=== PATIENT | male | born 1980 | race Caucasian/White ===

== ENCOUNTER 2018-01-14 15:44 | Inpatient (IN) | payer OTHER ==
[2018-01-14 16:40] VITALS: BMI 27.3
--- NOTE | 2018-01-14 19:35 | HP ---
COWS - Scale Resting Pulse: 0= [place] 80 or Below Sweatin= Chills/Flushing Restless Observation: 3= Extraneous Movement Pupil Size: 1= Pupils >than Normal Bone or Joint Aches: 1= Mild Discomfort Runny Nose/ Eye Tearin= Runny Nose/Eyes GI Upset > 30mins: 3= Vomiting/Diarrhea Tremor Observation: 2= Slight Tremor Visible Yawning Observation: 1= 1-2x During Session Anxiety or Irritability: 2=Irritable/Anxious Goose Flesh Skin: 0=Smooth Skin COWS Score: 16 Admission ROS [facility] Chief Complaint: withdrawal symptoms " I wrecked my care recently while using drugs" Allergies/Adverse Reactions: Allergies Allergy/AdvReac Type Severity Reaction Status Date / Time No Known Allergies Allergy Verified 01/14/18 18:14 History of Present Illness: 37 yo male with hx of xanax, cocaine, IV heroin dependence is here seeking detox for the first time. PMHX: Anxiety and depression. Denies suicidal / homicidal ideation. Reports he was prescribed 60 xanax this pasted December and consumed them before by last Monday and blacked out. Last detox January 2017 at [place] . Longest period of sobriety 1 month. Reference #: [id number] Others' Prescriptions Patient Name: Adi Key Date: 1980 Address: [address] [place] [address] Sex: Male Rx Written Rx Dispensed Drug Quantity Days Supply Prescriber Name 01/03/2018 01/04/2018 alprazolam 1 mg tablet 60 30 Delfin Irais M ([facility]) 12/02/2017 12/02/2017 alprazolam 1 mg tablet 60 30 Delfin Irais M ([facility]) 11/03/2017 11/03/2017 alprazolam 1 mg tablet 60 30 Delfin Irais M ([facility]) 10/03/2017 10/03/2017 alprazolam 1 mg tablet 60 30 Delfin Irais M ([facility]) 09/01/2017 09/03/2017 alprazolam 1 mg tablet 60 30 Delfin Irais M ([facility]) 07/26/2017 07/26/2017 alprazolam 1 mg tablet 60 30 DelfinIrais ([facility]) 06/21/2017 06/22/2017 alprazolam 1 mg tablet 60 30 Irais Lenz ([facility]) 05/19/2017 05/19/2017 alprazolam 1 mg tablet 60 30 Irais Lenz ([facility]) 05/10/2017 05/17/2017 novarel [id number] units vial 1 28 Delfin Rome H 04/11/2017 04/11/2017 alprazolam 1 mg tablet 60 30 Irais Lenz ([facility]) 03/28/2017 03/30/2017 novarel 62098 units vial 1 1 Delfin Rome H 10/11/2016 03/24/2017 zolpidem tartrate 10 mg tablet 30 30 Irais Lenz ([facility] ) 03/09/2017 03/09/2017 alprazolam 1 mg tablet 60 30 Dee Gray MD 03/03/2017 03/08/2017 suboxone 8 mg-2 mg sl film 90 30 John Gilbert MD 02/15/2017 02/16/2017 novarel [id number] units vial 1 21 CriseldaDelfin mosqueda 01/30/2017 01/30/2017 alprazolam 1 mg tablet 60 30 Irais Lenz ([facility] Exam Limitations: No Limitations - Ebola screening Have you traveled outside of the country in the last 21 days: No (N) Have you had contact with anyone from an Ebola affected area: No Have you been sick,other than usual withdrawal symptoms: No Do you have a fever: No - Review of Systems Constitutional: Chills, Changes in sleep, Other (weight gain) EENT: reports: Other (runny nose) Respiratory: reports: Other (SOB when anxious) Cardiac: reports: No Symptoms Reported GI: reports: Diarrhea, Poor Fluid Intake, Abdominal cramping : reports: No Symptoms Reported Musculoskeletal: reports: Back Pain, Joint Pain Integumentary: reports: No Symptoms Reported Neuro: reports: Other (blackouts in the past, last episode 1 week ago) Endocrine: reports: Increased Thirst Hematology: reports: No Symptoms Reported Psychiatric: reports: Orientated x3, Agitated, Anxious Other Systems: Reviewed and Negative Patient History - Patient Medical History Hx Anemia: No Hx Asthma: No Hx Chronic Obstructive Pulmonary Disease (COPD): No Hx Cancer: No Hx Cardiac Disorders: No Hx Congestive Heart Failure: No Hx Hypertension: No Hx Hypercholesterolemia: No Hx Pacemaker: No HX Cerebrovascular Accident: No Hx Seizures: No Hx Dementia: No Hx Diabetes: No Hx Gastrointestinal Disorders: No Hx Liver Disease: No Hx Genitourinary Disorders: No Hx Sexually Transmitted Disorders: No Hx Renal Disease (ESRD): No Hx Thyroid Disease: No Hx Human Immunodeficiency Virus (HIV): No (declines testing ) Hx Hepatitis C: No Hx Depression: Yes Hx Suicide Attempt: No Hx Bipolar Disorder: No Hx Schizophrenia: No - Patient Surgical History Past Surgical History: No - PPD History Previous Implant?: No Documented Results: Negative w/o proof Implanted On Prior [facility] Admission?: No PPD to be Administered?: Yes - Smoking Cessation Smoking history: Current every day smoker Have you smoked in the past 12 months: Yes Aproximately how many cigarettes per day: 20 Hx Chewing Tobacco Use: No Initiated information on smoking cessation: Yes 'Breaking Loose' booklet given: 01/14/18 - Substance & Tx. History Hx Alcohol Use: Yes Hx Substance Use: Yes Substance Use Type: Heroin, Tranquilizers Hx Substance Use Treatment: Yes ([facility] January 2017) - Substances Abused Heroin Route: Injection Frequency: Daily Amount used: 1 1/2 BUNDLE Age of first use: 14 Date of Last Use: 01/14/18 Family Disease History - Family Disease History Family Disease History: Other: Father (alive, alcohol ), Mother (alive, alcohol ) Admission Physical Exam S - Vital Signs Vital Signs: Vital Signs - 24 hr 01/14/18 16:38 Temperature 97.8 F Pulse Rate 74 Respiratory 18 Rate Blood Pressure 133/81 - Physical General Appearance: Yes: Disheveled, Mild Distress, Irritable, Sweating, Anxious , Other (restless) HEENTM: Yes: EOMI, Hearing grossly Normal, Normal ENT Inspection, Normocephalic , Normal Voice, ERIN, Pharynx Normal, Tm's normal Respiratory: Yes: Chest Non-Tender, Lungs Clear, Normal Breath Sounds, No Respiratory Distress, No Accessory Muscle Use Neck: Yes: Within Normal Limits, No masses,lesions,Nodules Breast: Yes: Breast Exam Deferred Cardiology: Yes: Regular Rhythm, Regular Rate Abdominal: Yes: Normal Bowel Sounds, Non Tender, Flat, Soft Genitourinary: Yes: Within Normal Limits Back: Yes: Normal Inspection Musculoskeletal: Yes: full range of Motion, Gait Steady, Pelvis Stable Extremities: Yes: Normal Capillary Refill, Normal Inspection, Normal Range of Motion, Non-Tender Neurological: Yes: senior data modeler II-XII NML intact, Fully Oriented, Alert, Motor Strength 5/5, Depressed Affect Integumentary: Yes: Normal Color, Warm, Diaphoresis Lymphatic: Yes: Within Normal Limits - Diagnostic (1) Opioid dependence with withdrawal Current Visit: Yes Status: Acute (2) Sedative hypnotic or anxiolytic dependence Current Visit: Yes Status: Acute (3) Anxiety and depression Current Visit: Yes Status: Acute (4) Back pain Current Visit: Yes Status: Acute Qualifiers: Back pain location: low back pain Chronicity: acute Back pain laterality : unspecified Sciatica presence: without sciatica Qualified Code(s): M54.5 - Low back pain Cleared for Admission [facility] - Detox or Rehab [facility] Level of Care: Medically Managed Detox Regimen/Protocol: Methadone [facility] Breath Alcohol Content Breath Alcohol Content: 0 Urine Drug Screen - Results Drug Screen Negative: No Urine Drug Screen Results: ELENA-Cocaine, OPI-Opiates
[2018-01-14] MEDS ORDERED: P-EPHED 60MG/TRIPROLIDI 2.5MG TABLET PO PRN (19:37)
[2018-01-14] MEDS ORDERED: MAG HYDROX/AL HYDROX/SIMETH 30 ML UNIT-DOSE CUP PO PRN (19:37)
[2018-01-14] MEDS ORDERED: guaiFENesin/D-METHORPHAN HB 10 ML UNIT-DOSE CUPS PO PRN (19:37)
[2018-01-14] MEDS ORDERED: MAGNESIUM CITRATE 300 ML BOTTLE PO PRN (19:37)
[2018-01-14] MEDS ORDERED: LOPERAMIDE HCL 2 MG CAPSULE PO PRN (19:37)
[2018-01-14] MEDS ORDERED: ACETAMINOPHEN 325 MG TABLET (FP) PO PRN (19:37)
[2018-01-14] MEDS ORDERED: IBUPROFEN 400 MG TABLET (FP) PO PRN (19:37)
[2018-01-14] MEDS ORDERED: MENTHOL/PHENOL 1 EACH UD MM PRN (19:37)
[2018-01-14] MEDS ORDERED: MAGNESIUM HYDROX 2400MG/30ML ORAL SUSPENSION 30 ML CUP PO PRN (19:37)
[2018-01-14] MEDS ORDERED: METHADONE HCL 10 MG TABLET (FOR DETOX USE ONLY) PO ONE ×2 (20:00→23:00)
[2018-01-14] MEDS: diazePAM 5 MG TABLET PO PRN (20:04)
[2018-01-14] MEDS ORDERED: MELATONIN 5 MG TABLETS PO PRN (22:00)
[2018-01-14] MEDS: THIAMINE HCL 100 MG TABLET (FP) PO SCH (22:17)
[2018-01-14] MEDS: hydrOXYzine PAMOATE 50 MG CAPSULE (FP) PO PRN (22:18)
[2018-01-14 23:44] LABS: URINE APPEARANCE SLCLOUDY; URINE BILIRUBIN NEGATIVE (<2.0 mg/dL); URINE BLOOD 1+ (NEGATIVE); URINE COLOR AMBER; URINE GLUCOSE (UA) NEGATIVE (NEGATIVE); URINE KETONE 2+ (NEGATIVE); URINE LEUK ESTERASE NEGATIVE (NEGATIVE); URINE NITRITE NEGATIVE (NEGATIVE)
[2018-01-14 23:45] LABS: URINE PROTEIN 2+ (NEGATIVE)
[2018-01-14 23:49] LABS: EPI CELLS RARE /HPF (FEW); URINE HYALINE CAST 4 /lpf; URINE MUCUS MANY
[2018-01-15] MEDS: hydrOXYzine PAMOATE 50 MG CAPSULE (FP) PO PRN ×2 (02:19→13:27)
[2018-01-15] MEDS: diazePAM 5 MG TABLET PO PRN ×2 (09:23→22:11)
[2018-01-15] MEDS ORDERED: METHADONE HCL 10 MG TABLET (FOR DETOX USE ONLY) PO ONE (10:00)
[2018-01-15] MEDS: PRENATAL VITAMINS W/ FOLIC ACID TABLET (FP) PO SCH (10:22)
[2018-01-15] MEDS: NICOTINE 21 MG/24 HOURS TOPICAL PATCH TD SCH (10:22)
[2018-01-15] MEDS: NICOTINE POLACRILEX 2 MG GUM BC PRN ×2 (10:24→13:27)
[2018-01-15 10:34] LABS: HEMATOCRIT 42.5 % (35.4-49); MCH 29.8 pg (25.7-33.7); MCHC 35.3 g/dl (32.0-35.9); MEAN CELL VOLUME 84.3 fl (80-96); MEAN PLT VOLUME 8.1 fl (7.5-11.1); PLATELET COUNT 295 K/MM3 (134-434); RBC 5.04 M/mm3 (4.00-5.60); RDW 13.5 % (11.9-15.9); WHITE BLOOD COUNT 8.5 K/mm3 (4.0-10.0)
[2018-01-15 10:40] LABS: CHLORIDE 108 mmol/L (98-107); POTASSIUM 3.6 mmol/L (3.5-5.1); SODIUM 142 mmol/L (136-145)
[2018-01-15 10:52] LABS: ALBUMIN 4.3 g/dl (3.4-5.0); ALK PHOS 90 U/L (45-117); ANION GAP 6 (8-16); BILIRUBIN,TOTAL 0.8 mg/dL (0.2-1.0); BLOOD UREA NITROGEN 20 mg/dL (7-18); CALCIUM 9.3 mg/dL (8.5-10.1); CO2 28 mmol/L (21-32); CREATININE 1.1 mg/dL (0.7-1.3); GLUCOSE,RANDOM 113 mg/dL (74-106); SGOT/AST 14 U/L (15-37); SGPT/ALT 24 U/L (12-78); TOT PROT 7.6 g/dl (6.4-8.2)
--- NOTE | 2018-01-15 11:26 | EKG ---
Test Reason : Blood Pressure : / mmHG Vent. Rate : 070 BPM Atrial Rate : 070 BPM P-R Int : 144 ms QRS Dur : 086 ms QT Int : 420 ms P-R-T Axes : 054 030 -14 degrees QTc Int : 453 ms NORMAL SINUS RHYTHM T WAVE ABNORMALITY, CONSIDER INFERIOR ISCHEMIA ABNORMAL ECG NO PREVIOUS ECGS AVAILABLE Confirmed by SARAH SILVEIRA, JAIRON ([id number]) on 01/15/2018 11:25:54 AM Referred By: Confirmed By:JAIRON SMITH MD
--- NOTE | 2018-01-15 14:04 | PN ---
BHS Progress Note (SOAP) Subjective: Sleep disturbance Sweats Shakes Objective: 01/15/18 13:52 A & O x 3 tremors Vital Signs Temperature 98.4 F 01/15/18 13:18 Pulse Rate 62 01/15/18 13:18 Respiratory Rate 18 01/15/18 13:18 Blood Pressure 118/63 01/15/18 13:18 O2 Sat by Pulse Oximetry (%) Laboratory Last Values WBC 8.5 K/mm3 (4.0-10.0) 01/15/18 07:00 RBC 5.04 M/mm3 (4.00-5.60) 01/15/18 07:00 Hgb 15.0 GM/dL (11.7-16.9) 01/15/18 07:00 Hct 42.5 % (35.4-49) 01/15/18 07:00 MCV 84.3 fl (80-96) 01/15/18 07:00 MCH 29.8 pg (25.7-33.7) 01/15/18 07:00 MCHC 35.3 g/dl (32.0-35.9) 01/15/18 07:00 RDW 13.5 % (11.9-15.9) 01/15/18 07:00 Plt Count 295 K/MM3 (134-434) 01/15/18 07:00 MPV 8.1 fl (7.5-11.1) 01/15/18 07:00 Sodium 142 mmol/L (136-145) 01/15/18 07:00 Potassium 3.6 mmol/L (3.5-5.1) 01/15/18 07:00 Chloride 108 mmol/L (98-107) H 01/15/18 07:00 Carbon Dioxide 28 mmol/L (21-32) 01/15/18 07:00 Anion Gap 6 (8-16) L 01/15/18 07:00 BUN 20 mg/dL (7-18) H 01/15/18 07:00 Creatinine 1.1 mg/dL (0.7-1.3) 01/15/18 07:00 Creat Clearance w eGFR > 60 (>60) 01/15/18 07:00 Random Glucose 113 mg/dL (74-106) H 01/15/18 07:00 Calcium 9.3 mg/dL (8.5-10.1) 01/15/18 07:00 Total Bilirubin 0.8 mg/dL (0.2-1.0) 01/15/18 07:00 AST 14 U/L (15-37) L 01/15/18 07:00 ALT 24 U/L (12-78) 01/15/18 07:00 Alkaline Phosphatase 90 U/L (45-117) 01/15/18 07:00 Total Protein 7.6 g/dl (6.4-8.2) 01/15/18 07:00 Albumin 4.3 g/dl (3.4-5.0) 01/15/18 07:00 Urine Color Aletha 01/14/18 22:08 Urine Appearance Slcloudy 01/14/18 22:08 Urine pH 6.0 (5.0-8.0) 01/14/18 22:08 Ur Specific [place] 1.033 (1.001-1.035) 01/14/18 22:08 Urine Protein 2+ (NEGATIVE) H 01/14/18 22:08 Urine Glucose (UA) Negative (NEGATIVE) 01/14/18 22:08 Urine Ketones 2+ (NEGATIVE) H 01/14/18 22:08 Urine Blood 1+ (NEGATIVE) H 01/14/18 22:08 Urine Nitrite Negative (NEGATIVE) 01/14/18 22:08 Urine Bilirubin Negative (<2.0 mg/dL) 01/14/18 22:08 Urine Urobilinogen 2.0 mg/dL (0.2-1.0) 01/14/18 22:08 Ur Leukocyte Esterase Negative (NEGATIVE) 01/14/18 22:08 Urine WBC (Auto) 3 /hpf (3-5) 01/14/18 22:08 Urine RBC (Auto) 6 /hpf (0-3) 01/14/18 22:08 Ur Epithelial Cells Rare /HPF (FEW) 01/14/18 22:08 Hyaline Casts 4 /lpf 01/14/18 22:08 Urine Mucus Many 01/14/18 22:08 RPR Titer Nonreactive (NONREACTIVE) 01/15/18 07:00 Labs noted, abnormal urinalysis Assessment: 01/15/18 14:04 Withdrawal sx abnormal urinalysis Plan: Continue detox Increase hydration Repeat UA in a.m
--- NOTE | 2018-01-15 16:35 | CONSULT ---
[facility] Psychiatric Consult - Data Date of interview: 01/15/18 Admission source: [facility] Identifying data: First admission to [facility] for this 37 y/o male seeking detox treatment on for heroin and cocaine (crack) dependence.Patient is single without dependents,domiciled,unemployed and reportedly deprived of a source of income. Substance Abuse History: Confirmed by patient in this session.Smoking history: Current every day smoker. Have you smoked in the past 12 months: Yes. Aproximately how many cigarettes per day: 20. Hx Chewing Tobacco Use: No. Initiated information on smoking cessation: Yes. 'Breaking Loose' booklet given : 01/14/18. - Substance & Tx. History. Hx Alcohol Use: Yes. Hx Substance Use : Yes. Substance Use Type: Heroin, Tranquilizers. Hx Substance Use Treatment: Yes ([facility] January 2017). - Substances Abused. Heroin. Route: Injection. Frequency: Daily. Amount used: 1 1/2 BUNDLE. Age of first use: 14. Date of Last Use: 01/14/18 Medical History: Patient endorses good general health.Noted history of an accidental heroin overdose (2017). Psychiatric History: Patient denies. Physical/Sexual Abuse/Trauma History: Patient denies. Additional Comment: Urine Drug Screen Results: ELENA-Cocaine, OPI-Opiates.Noted. Mental Status Exam - Mental Status Exam Alert and Oriented to: Time, Place, Person Cognitive Function: Good Patient Appearance: Well Groomed Mood: Nervous, Withdrawn Affect: Mood Congruent Patient Behavior: Fatigued, Cooperative Speech Pattern: Clear Voice Loudness: Normal Thought Process: Goal Oriented Thought Disorder: Not Present Hallucinations: Denies Suicidal Ideation: Denies Homicidal Ideation: Denies Insight/Judgement: Poor Sleep: Poorly, Difficulty falling asleep Appetite: Good Muscle strength/Tone: Normal Gait/Station: Normal Psychiatric Findings - Problem List ([place] 1, 2,3) (1) Opioid dependence with withdrawal Current Visit: Yes Status: Acute (2) Cocaine dependence Current Visit: Yes Status: Acute (3) Nicotine dependence Current Visit: Yes Status: Acute (4) Substance induced mood disorder Current Visit: Yes Status: Acute (5) Insomnia Current Visit: Yes Status: Acute - Initial Treatment Plan Initial Treatment Plan: Psychoeducation.Sleep hygiene.Detoxification.Ambien 10 mg po hs prn.Patient is made aware of risk of parasomnias.Observation.
[2018-01-15] MEDS: ZOLPIDEM TARTRATE 10 MG TABLET (PARK CARE ONLY) PO PRN (22:11)
[2018-01-15] MEDS: THIAMINE HCL 100 MG TABLET (FP) PO SCH (22:12)
[2018-01-15 23:18] LABS: URINE APPEARANCE TURBID; URINE BILIRUBIN NEGATIVE (<2.0 mg/dL); URINE BLOOD NEGATIVE (NEGATIVE); URINE COLOR YELLOW; URINE GLUCOSE (UA) NEGATIVE (NEGATIVE); URINE KETONE NEGATIVE (NEGATIVE); URINE LEUK ESTERASE NEGATIVE (NEGATIVE); URINE NITRITE NEGATIVE (NEGATIVE); URINE PROTEIN NEGATIVE (NEGATIVE); URINE UROBILINOGEN NEGATIVE mg/dL (0.2-1.0)
[2018-01-16] MEDS: hydrOXYzine PAMOATE 50 MG CAPSULE (FP) PO PRN ×2 (01:48→16:41)
[2018-01-16] MEDS ORDERED: METHADONE HCL 5 MG TABLET (FOR DETOX USE ONLY) PO ONE (10:00)
[2018-01-16] MEDS: PRENATAL VITAMINS W/ FOLIC ACID TABLET (FP) PO SCH (10:11)
[2018-01-16] MEDS: NICOTINE 21 MG/24 HOURS TOPICAL PATCH TD SCH (10:11)
[2018-01-16] MEDS: diazePAM 5 MG TABLET PO PRN ×2 (10:11→22:17)
--- NOTE | 2018-01-16 13:22 | PN ---
BHS COWS - Scale Resting Pulse: 1= [place] 81-100 Sweatin= Chills/Flushing Restless Observation: 1= Difficult to Sit Still Pupil Size: 0= Normal to Room Light Bone or Joint Aches: 2= Severe Diffuse Aches Runny Nose/ Eye Tearin= None GI Upset > 30mins: 2= Nausea/Diarrhea Tremor Observation of Outstretched Hands: 0= None Yawning Observation: 1= 1-2x During Session Anxiety or Irritability: 2=Irritable/Anxious Goose Flesh Skin: 3=Piloerection COWS Score: 13 BHS Progress Note (SOAP) Subjective: Sweating, Diarrhea, Body Aches, Interrupted Sleep. Objective: PATIENT A & O X 3. NO ACUTE DISTRESS. 01/16/18 13:20 Vital Signs Temperature 98.5 F 01/16/18 09:10 Pulse Rate 91 H 01/16/18 09:10 Respiratory Rate 18 01/16/18 09:10 Blood Pressure 123/78 01/16/18 09:10 O2 Sat by Pulse Oximetry (%) Laboratory Tests 01/14/18 01/15/18 01/15/18 22:08 07:00 07:00 WBC 8.5 RBC 5.04 Hgb 15.0 Hct 42.5 MCV 84.3 MCH 29.8 MCHC 35.3 RDW 13.5 Plt Count 295 MPV 8.1 Sodium 142 Potassium 3.6 Chloride 108 H Carbon Dioxide 28 Anion Gap 6 L BUN 20 H Creatinine 1.1 Creat Clearance w eGFR > 60 Random Glucose 113 H Calcium 9.3 Total Bilirubin 0.8 AST 14 L ALT 24 Alkaline Phosphatase 90 Total Protein 7.6 Albumin 4.3 Urine Color Aletha Urine Appearance Slcloudy Urine pH 6.0 Ur Specific [place] 1.033 Urine Protein 2+ H Urine Glucose (UA) Negative Urine Ketones 2+ H Urine Blood 1+ H Urine Nitrite Negative Urine Bilirubin Negative Urine Urobilinogen 2.0 Ur Leukocyte Esterase Negative Urine WBC (Auto) 3 Urine RBC (Auto) 6 Ur Epithelial Cells Rare Hyaline Casts 4 Urine Mucus Many RPR Titer 01/15/18 01/15/18 07:00 15:05 WBC RBC Hgb Hct MCV MCH MCHC RDW Plt Count MPV Sodium Potassium Chloride Carbon Dioxide Anion Gap BUN Creatinine Creat Clearance w eGFR Random Glucose Calcium Total Bilirubin AST ALT Alkaline Phosphatase Total Protein Albumin Urine Color Yellow Urine Appearance Turbid Urine pH 5.0 Ur Specific [place] 1.029 Urine Protein Negative Urine Glucose (UA) Negative Urine Ketones Negative Urine Blood Negative Urine Nitrite Negative Urine Bilirubin Negative Urine Urobilinogen Negative Ur Leukocyte Esterase Negative Urine WBC (Auto) Urine RBC (Auto) Ur Epithelial Cells Hyaline Casts Urine Mucus RPR Titer Nonreactive LABS NOTED. RESULTS OF REPEAT UA NOTED. 01/16/18 13:22 Assessment: 01/16/18 13:21 WITHDRAWAL SYMPTOMS. Plan: CONTINUE DETOX. INCREASE DAILY PO FLUID INTAKE.
[2018-01-16] MEDS: THIAMINE HCL 100 MG TABLET (FP) PO SCH (22:17)
[2018-01-16] MEDS: ZOLPIDEM TARTRATE 10 MG TABLET (PARK CARE ONLY) PO PRN (22:18)
[2018-01-17] MEDS: hydrOXYzine PAMOATE 50 MG CAPSULE (FP) PO PRN ×2 (01:49→23:34)
[2018-01-17] MEDS ORDERED: METHADONE HCL 5 MG TABLET (FOR DETOX USE ONLY) PO ONE (10:00)
[2018-01-17] MEDS: PRENATAL VITAMINS W/ FOLIC ACID TABLET (FP) PO SCH (10:22)
[2018-01-17] MEDS: NICOTINE 21 MG/24 HOURS TOPICAL PATCH TD SCH (10:23)
[2018-01-17] MEDS: diazePAM 5 MG TABLET PO PRN (10:24)
[2018-01-17] MEDS: NICOTINE POLACRILEX 2 MG GUM BC PRN ×2 (10:25→22:48)
--- NOTE | 2018-01-17 12:31 | PN ---
BHS Progress Note (SOAP) Subjective: ANXIETY,SWEATS. Objective: 01/17/18 12:40 Vital Signs 01/17/18 01/17/18 01/17/18 06:21 06:30 09:24 Temperature 97.2 F L 97.3 F L Pulse Rate 48 L 51 L Respiratory 18 18 20 Rate Blood Pressure 120/72 111/63 Laboratory Tests 01/14/18 01/15/18 01/15/18 22:08 07:00 07:00 WBC 8.5 RBC 5.04 Hgb 15.0 Hct 42.5 MCV 84.3 MCH 29.8 MCHC 35.3 RDW 13.5 Plt Count 295 MPV 8.1 Sodium 142 Potassium 3.6 Chloride 108 H Carbon Dioxide 28 Anion Gap 6 L BUN 20 H Creatinine 1.1 Creat Clearance w eGFR > 60 Random Glucose 113 H Calcium 9.3 Total Bilirubin 0.8 AST 14 L ALT 24 Alkaline Phosphatase 90 Total Protein 7.6 Albumin 4.3 Urine Color Aletha Urine Appearance Slcloudy Urine pH 6.0 Ur Specific [place] 1.033 Urine Protein 2+ H Urine Glucose (UA) Negative Urine Ketones 2+ H Urine Blood 1+ H Urine Nitrite Negative Urine Bilirubin Negative Urine Urobilinogen 2.0 Ur Leukocyte Esterase Negative Urine WBC (Auto) 3 Urine RBC (Auto) 6 Ur Epithelial Cells Rare Hyaline Casts 4 Urine Mucus Many RPR Titer 01/15/18 01/15/18 07:00 15:05 WBC RBC Hgb Hct MCV MCH MCHC RDW Plt Count MPV Sodium Potassium Chloride Carbon Dioxide Anion Gap BUN Creatinine Creat Clearance w eGFR Random Glucose Calcium Total Bilirubin AST ALT Alkaline Phosphatase Total Protein Albumin Urine Color Yellow Urine Appearance Turbid Urine pH 5.0 Ur Specific [place] 1.029 Urine Protein Negative Urine Glucose (UA) Negative Urine Ketones Negative Urine Blood Negative Urine Nitrite Negative Urine Bilirubin Negative Urine Urobilinogen Negative Ur Leukocyte Esterase Negative Urine WBC (Auto) Urine RBC (Auto) Ur Epithelial Cells Hyaline Casts Urine Mucus RPR Titer Nonreactive Assessment: 01/17/18 12:40 WITHDRAWAL SX Plan: CONTINUE DETOX INCREASE PO FLUIDS
[2018-01-17] MEDS: THIAMINE HCL 100 MG TABLET (FP) PO SCH (22:19)
[2018-01-17] MEDS: ZOLPIDEM TARTRATE 10 MG TABLET (PARK CARE ONLY) PO PRN (22:19)
[2018-01-18] MEDS ORDERED: METHADONE HCL 10 MG TABLET (FOR DETOX USE ONLY) PO ONE (10:00)
[2018-01-18] MEDS: hydrOXYzine PAMOATE 50 MG CAPSULE (FP) PO PRN (10:24)
[2018-01-18] MEDS: PRENATAL VITAMINS W/ FOLIC ACID TABLET (FP) PO SCH (10:24)
[2018-01-18] MEDS: NICOTINE 21 MG/24 HOURS TOPICAL PATCH TD SCH (10:24)
[2018-01-18] MEDS: NICOTINE POLACRILEX 2 MG GUM BC PRN ×3 (10:24→21:54)
--- NOTE | 2018-01-18 12:45 | PN ---
BHS Progress Note (SOAP) Subjective: DECREASED ANXIETY,SWEATS. REPORTS DETOX PROCEEDING WELL. Objective: 01/18/18 12:44 Vital Signs 01/18/18 01/18/18 01/18/18 06:05 06:30 10:11 Temperature 96.7 F L 97.2 F L Pulse Rate 53 L 51 L Respiratory 18 18 16 Rate Blood Pressure 107/63 112/65 Laboratory Tests 01/14/18 01/15/18 01/15/18 22:08 07:00 07:00 WBC 8.5 RBC 5.04 Hgb 15.0 Hct 42.5 MCV 84.3 MCH 29.8 MCHC 35.3 RDW 13.5 Plt Count 295 MPV 8.1 Sodium 142 Potassium 3.6 Chloride 108 H Carbon Dioxide 28 Anion Gap 6 L BUN 20 H Creatinine 1.1 Creat Clearance w eGFR > 60 Random Glucose 113 H Calcium 9.3 Total Bilirubin 0.8 AST 14 L ALT 24 Alkaline Phosphatase 90 Total Protein 7.6 Albumin 4.3 Urine Color Aletha Urine Appearance Slcloudy Urine pH 6.0 Ur Specific [place] 1.033 Urine Protein 2+ H Urine Glucose (UA) Negative Urine Ketones 2+ H Urine Blood 1+ H Urine Nitrite Negative Urine Bilirubin Negative Urine Urobilinogen 2.0 Ur Leukocyte Esterase Negative Urine WBC (Auto) 3 Urine RBC (Auto) 6 Ur Epithelial Cells Rare Hyaline Casts 4 Urine Mucus Many RPR Titer 01/15/18 01/15/18 07:00 15:05 WBC RBC Hgb Hct MCV MCH MCHC RDW Plt Count MPV Sodium Potassium Chloride Carbon Dioxide Anion Gap BUN Creatinine Creat Clearance w eGFR Random Glucose Calcium Total Bilirubin AST ALT Alkaline Phosphatase Total Protein Albumin Urine Color Yellow Urine Appearance Turbid Urine pH 5.0 Ur Specific [place] 1.029 Urine Protein Negative Urine Glucose (UA) Negative Urine Ketones Negative Urine Blood Negative Urine Nitrite Negative Urine Bilirubin Negative Urine Urobilinogen Negative Ur Leukocyte Esterase Negative Urine WBC (Auto) Urine RBC (Auto) Ur Epithelial Cells Hyaline Casts Urine Mucus RPR Titer Nonreactive Assessment: 01/18/18 12:45 WITHDRAWAL SX Plan: CONTINUE DETOX D/C IN AM
[2018-01-18] MEDS: ZOLPIDEM TARTRATE 10 MG TABLET (PARK CARE ONLY) PO PRN (22:22)
[2018-01-18] MEDS: THIAMINE HCL 100 MG TABLET (FP) PO SCH (22:22)
[2018-01-19] MEDS: hydrOXYzine PAMOATE 50 MG CAPSULE (FP) PO PRN (00:12)
[2018-01-19] MEDS ORDERED: METHADONE HCL 5 MG TABLET (FOR DETOX USE ONLY) PO ONE (06:00)
[2018-01-19 09:10] VITALS: BP 119/72; PULSE 59; TEMP 96.3
--- NOTE | 2018-01-19 18:27 | PN ---
BHS Progress Note (SOAP) Subjective: Patient denies current Detox symptoms and reports that he feels well overall. Objective: PATIENT A & O X 3, OBSERVED AMBULATING ON UNIT. NO ACUTE DISTRESS. 01/19/18 18:26 Vital Signs Temperature 96.3 F L 01/19/18 09:09 Pulse Rate 59 L 01/19/18 09:09 Respiratory Rate 18 01/19/18 09:09 Blood Pressure 119/72 01/19/18 09:09 O2 Sat by Pulse Oximetry (%) Laboratory Tests 01/14/18 01/15/18 01/15/18 22:08 07:00 07:00 WBC 8.5 RBC 5.04 Hgb 15.0 Hct 42.5 MCV 84.3 MCH 29.8 MCHC 35.3 RDW 13.5 Plt Count 295 MPV 8.1 Sodium 142 Potassium 3.6 Chloride 108 H Carbon Dioxide 28 Anion Gap 6 L BUN 20 H Creatinine 1.1 Creat Clearance w eGFR > 60 Random Glucose 113 H Calcium 9.3 Total Bilirubin 0.8 AST 14 L ALT 24 Alkaline Phosphatase 90 Total Protein 7.6 Albumin 4.3 Urine Color Aletha Urine Appearance Slcloudy Urine pH 6.0 Ur Specific [place] 1.033 Urine Protein 2+ H Urine Glucose (UA) Negative Urine Ketones 2+ H Urine Blood 1+ H Urine Nitrite Negative Urine Bilirubin Negative Urine Urobilinogen 2.0 Ur Leukocyte Esterase Negative Urine WBC (Auto) 3 Urine RBC (Auto) 6 Ur Epithelial Cells Rare Hyaline Casts 4 Urine Mucus Many RPR Titer 01/15/18 01/15/18 07:00 15:05 WBC RBC Hgb Hct MCV MCH MCHC RDW Plt Count MPV Sodium Potassium Chloride Carbon Dioxide Anion Gap BUN Creatinine Creat Clearance w eGFR Random Glucose Calcium Total Bilirubin AST ALT Alkaline Phosphatase Total Protein Albumin Urine Color Yellow Urine Appearance Turbid Urine pH 5.0 Ur Specific [place] 1.029 Urine Protein Negative Urine Glucose (UA) Negative Urine Ketones Negative Urine Blood Negative Urine Nitrite Negative Urine Bilirubin Negative Urine Urobilinogen Negative Ur Leukocyte Esterase Negative Urine WBC (Auto) Urine RBC (Auto) Ur Epithelial Cells Hyaline Casts Urine Mucus RPR Titer Nonreactive LABS NOTED. Assessment: 01/19/18 18:26 COMPLETION OF DETOX REGIMEN. Plan: PATIENT SCHEDULED FOR DISCHARGE FROM UNIT TODAY.
--- NOTE | 2018-01-19 18:34 | DS ---
[facility] Detox Discharge Summary Admission Date: 01/14/18 Discharge Date: 01/19/18 - History Present History: Cocaine Dependence, Opioid Dependence, Sedative Dependence Additional Comments: PATIENT Pertinent Past History: Depression, Insomnia, Anxiety, Back Pain, Nicotine Dependence. - Physical Exam Results Vital Signs: Vital Signs Temperature 96.3 F L 01/19/18 09:09 Pulse Rate 59 L 01/19/18 09:09 Respiratory Rate 18 01/19/18 09:09 Blood Pressure 119/72 01/19/18 09:09 O2 Sat by Pulse Oximetry (%) Pertinent Admission Physical Exam Findings: WITHDRAWAL SYMPTOMS. Laboratory Tests 01/14/18 01/15/18 01/15/18 22:08 07:00 07:00 WBC 8.5 RBC 5.04 Hgb 15.0 Hct 42.5 MCV 84.3 MCH 29.8 MCHC 35.3 RDW 13.5 Plt Count 295 MPV 8.1 Sodium 142 Potassium 3.6 Chloride 108 H Carbon Dioxide 28 Anion Gap 6 L BUN 20 H Creatinine 1.1 Creat Clearance w eGFR > 60 Random Glucose 113 H Calcium 9.3 Total Bilirubin 0.8 AST 14 L ALT 24 Alkaline Phosphatase 90 Total Protein 7.6 Albumin 4.3 Urine Color Aletha Urine Appearance Slcloudy Urine pH 6.0 Ur Specific [place] 1.033 Urine Protein 2+ H Urine Glucose (UA) Negative Urine Ketones 2+ H Urine Blood 1+ H Urine Nitrite Negative Urine Bilirubin Negative Urine Urobilinogen 2.0 Ur Leukocyte Esterase Negative Urine WBC (Auto) 3 Urine RBC (Auto) 6 Ur Epithelial Cells Rare Hyaline Casts 4 Urine Mucus Many RPR Titer 01/15/18 01/15/18 07:00 15:05 WBC RBC Hgb Hct MCV MCH MCHC RDW Plt Count MPV Sodium Potassium Chloride Carbon Dioxide Anion Gap BUN Creatinine Creat Clearance w eGFR Random Glucose Calcium Total Bilirubin AST ALT Alkaline Phosphatase Total Protein Albumin Urine Color Yellow Urine Appearance Turbid Urine pH 5.0 Ur Specific [place] 1.029 Urine Protein Negative Urine Glucose (UA) Negative Urine Ketones Negative Urine Blood Negative Urine Nitrite Negative Urine Bilirubin Negative Urine Urobilinogen Negative Ur Leukocyte Esterase Negative Urine WBC (Auto) Urine RBC (Auto) Ur Epithelial Cells Hyaline Casts Urine Mucus RPR Titer Nonreactive LABS NOTED. - Treatment Hospital Course: Detox Protocol Followed, Detoxed Safely, Responded well, Discharged Condition Good, Rehab Referral Accepted Patient has Accepted a Rehab Referral to: [facility] ([facility] - Diagnosis (1) Anxiety and depression Status: Acute (2) Back pain Status: Acute Qualifiers: Back pain location: low back pain Chronicity: acute Back pain laterality : unspecified Sciatica presence: without sciatica Qualified Code(s): M54.5 - Low back pain (3) Opioid dependence with withdrawal Status: Acute (4) Sedative hypnotic or anxiolytic dependence Status: Acute (5) Cocaine dependence Status: Acute Qualifiers: Substance use status: uncomplicated Qualified Code(s): F14.20 - Cocaine dependence, uncomplicated (6) Insomnia Status: Acute Qualifiers: Insomnia type: unspecified Qualified Code(s): G47.00 - Insomnia, unspecified (7) Nicotine dependence Status: Acute Qualifiers: Nicotine product type: cigarettes Substance use status: in withdrawal Qualified Code(s): F17.213 - Nicotine dependence, cigarettes, with withdrawal (8) Substance induced mood disorder Status: Acute - AMA Did Patient Leave Against Medical Advice: No
== END 2018-01-19 09:24 | disposition home or self-care (01) | DRG 773 ==
LOC: YASAS 15:44 → Y3N 18:14
PROVIDERS: ADMIT Surgery; ATTEND Surgery
PROC: HZ2ZZZZ Detoxification Services for Substance Abuse Treatment (ICD-10-PCS; principal; 2018-01-14)
DX: F11.23 Opioid dependence with withdrawal (principal); F13.230 Sedative, hypnotic or anxiolytic dependence with withdrawal, uncomplicated; F14.20 Cocaine dependence, uncomplicated; F17.213 Nicotine dependence, cigarettes, with withdrawal; F19.24 Other psychoactive substance dependence with psychoactive substance-induced mood disorder; F41.8 Other specified anxiety disorders; R82.90 Unspecified abnormal findings in urine; G47.00 Insomnia, unspecified; M54.5 Low back pain
CPT/HCPCS: 36415; 80053; 81003; 81015; 85027; 86593; 93005; 93010